=== PATIENT | male | born 1970 ===

== ENCOUNTER 2022-10-04 06:25 | Day surgery (SDC) | payer OTHER ==
[2022-10-04] MEDS ORDERED: TYLENOL ARTHRI650 MG PO (09:49)
[2022-10-04] MEDS ORDERED: KETO10TA2 PO (09:49)
[2022-10-04] MEDS ORDERED: TRAMADOL HCL50 MG PO (09:49)
[2022-10-04] MEDS ORDERED: MIRALAX17 GM PO (09:49)
== END 2022-10-04 15:30 | disposition home or self-care (01) ==
LOC: CIR.AMB 06:25
PROVIDERS: ATTEND Surgery
DX: K80.10 Calculus of gallbladder with chronic cholecystitis without obstruction (principal); R59.0 Localized enlarged lymph nodes; Z20.822 Contact with and (suspected) exposure to COVID-19